=== PATIENT | male | born 1970 | race Caucasian/White ===

== ENCOUNTER 2019-04-24 12:11 | Emergency (ER) | payer SELFPAY ==
[~2019-04-24] VITALS: Ht 170.2 cm; Wt 72.6 kg
[2019-04-24 12:12] VITALS: BP 105/54
--- NOTE | 2019-04-24 12:30 | NUR ---
brought in by EMS from a place of business on [address] in [place]. pt was laid out on the floor admits to etoh abuse with heavy etoh on breath. no tremors noted at this time denies injury/trauma; no signs of injury noted. pt denies pain at this time. VSS. ER MD to see pt. hx---dm, rx---non compliant
--- NOTE | 2019-04-24 16:03 | NUR ---
PT AROSABLE TO VOICE. PT REPORTS NO PAIN, NO N/V, NO DIZZINESS.
--- NOTE | 2019-04-24 17:43 | NUR ---
sandwich sack given
--- NOTE | 2019-04-24 17:44 | NUR ---
Patient discharged with v/s stable. Written and verbal after care instructions given and explained. Patient verbalized understanding. Ambulatory with steady gait. All questions addressed prior to discharge. Advised to follow up with PMD.
[2019-04-24 17:46] VITALS: BP 113/70
== END 2019-04-24 17:44 | disposition home or self-care (01) ==
LOC: MED 12:11
DX: F10.129 Alcohol abuse with intoxication, unspecified (principal); I10 Essential (primary) hypertension; F17.210 Nicotine dependence, cigarettes, uncomplicated; E11.9 Type 2 diabetes mellitus without complications; Y90.9 Presence of alcohol in blood, level not specified
CPT/HCPCS: 82948; 93005; 99283